=== PATIENT | male | born 1980 | race Two or more races ===

== ENCOUNTER 2024-09-24 10:58 | Emergency (ER) | payer MEDICAID, SELFPAY ==
[2024-09-24 11:33] VITALS: BP 155/94; PULSE 81; RESP 18; TEMP 37.3; O2SAT 98; BMI 38.5
--- NOTE | 2024-09-24 11:39 | XR_ITS ---
Examination: AP pelvis single view Technique: AP supine portable pelvis single view Exam date and time: September 24, 2024 1144 hrs. Indications: Injury to the pelvis 10 days ago, pelvic pain. Findings: No hip fractures or hip dislocations Bones of the pelvis intact Impression: No acute hip or pelvic fracture
--- NOTE | 2024-09-24 11:39 | XR_ITS ---
Examination: Sacrum and coccyx 3 views Technique: AP inclined AP lateral sacrum and coccyx 3 views Exam date and time: September 24, 2024 1133 hrs. Indications: Injury to the sacrum 10 days ago with pain Findings: Adequate alignment sacrococcygeal segments No acute sacral or coccygeal fracture Grade 1 spondylolisthesis L5 on S1 with moderate degenerative disc disease at this level Impression: Grade 1 spondylolisthesis L5 on S1 with moderate degenerative disc disease at this level
[2024-09-24] MEDS: KETOROLAC INJ 30 MG/ML VIAL IM (12:00)
--- NOTE | 2024-09-24 12:36 | EDNOTE_ITS ---
ED Back Injury Pain RME/HPI General Chief Complaint: Back Pain/Injury Stated Complaint: LOWER BACK PAIN RAD TO RIGHT BUTTOCK Time Seen by Provider: 09/24/24 11:02 Arrival date/time: 09/24/24 10:58 44-year-old male presents to the emergency department complains of lower back pain and right buttock pain patient reports symptoms ongoing for the last few days Limitations: no limitations Related Data Home Medications ?Medication ?Instructions ?Recorded ?Confirmed enalapril maleate 20 mg tablet 20 mg PO DAILY ##0 07/0103/08/18 Previous Rx's ?Medication ?Instructions ?Recorded hydrocodone 5 mg-acetaminophen 325 1 tab PO Q6HR PRN p ain (scale 03/09/18 mg tablet score 7-10) #12 tabs hydrocodone 5 mg-acetaminophen 325 1 tab PO BID PRN pa in #10 tabs 09/24/24 mg tablet Allergies Allergy/AdvReac Type Severity Reaction Status Date / Time No Known Allergies Allergy Verified 03/08/18 21:24 Review of Systems Review of Systems Systems Reviewed: All systems reviewed, normal except as documented Constitutional Constitutional: Reports system reviewed and no additional complaints, except as documented, Denies fever(s) and Denies headache(s) Eyes Eyes: Reports system reviewed and no additional complaints, except as documented and Denies blurry vision ENT Ears, Nose, Mouth, and Throat: Reports system reviewed and no additional complaints, except as documented, Denies headache(s), Denies nasal congestion, Denies nasal discharge and Denies neck pain Cardiovascular Cardiovascular: Reports system reviewed and no additional complaints, except as documented, Denies chest pain and Denies dyspnea Respiratory Respiratory: Reports system reviewed and no additional complaints, except as documented, Denies chest congestion, Denies cough and Denies dyspnea Gastrointestinal Gastrointestinal: Reports system reviewed and no additional complaints, except as documented and Denies abdominal pain Musculoskeletal Musculoskeletal: Reports system reviewed and no additional complaints, except as documented, Reports back pain, Denies deformity, Denies neck pain, Denies numbness, Reports stiffness and Denies tingling Integumentary/Breasts Skin/Breast: Reports system reviewed and no additional complaints, except as documented and Denies rash Neurologic Neurologic: Reports system reviewed and no additional complaints, except as documented, Reports as per HPI, Denies headache(s), Denies numbness and Denies tingling Past Medical History Past Medical History CARDIAC: Positive Hypertension; Negative Congestive Heart Failure RESPIRATORY: Negative Chronic Obstructive Pulmonary Disease (COPD) GENITOURINARY: Negative Renal Disease ENDOCRINE: Negative Diabetes Mellitus Type 1 or Diabetes Mellitus Type 2 PSYCHO/SOCIAL: Positive Anxiety Social History SMOKING STATUS: Never smoker SECOND HAND EXPOSURE: No ED Exam General Limitations: Present no limitations General appearance: Present alert and in no apparent distress Head Head exam: Present atraumatic, normocephalic and normal inspection Eye Eye exam: Present normal appearance, PERRL and EOMI; Absent conjunctival injection ENT ENT exam: Present normal exam, normal oropharynx and mucous membranes moist Neck Neck exam: Present normal inspection, full ROM and trachea midline Chest Chest inspection: Present normal inspection and symmetric chest wall rise Respiratory Respiratory exam: Present normal lung sounds bilaterally; Absent respiratory distress, wheezes, stridor, accessory muscle use or prolonged expiratory phase Cardiovascular Cardiovascular exam: Present regular rate, normal rhythm and normal heart sounds Abdominal Exam Abdominal exam: Present soft and normal bowel sounds; Absent distention, tenderness, guarding, rebound or rigidity Extremities Exam Extremities exam: Present normal inspection and full ROM; Absent tenderness Back Exam Back exam: Present normal inspection, full ROM, tenderness, muscle spasm and paraspinal tenderness; Absent CVA tenderness (R), CVA tenderness (L) or vert ebral tenderness Neurological Exam Neurological exam: Present alert, oriented X3 and CN II-XII intact Psychiatric Psychiatric exam: Present normal affect and normal mood Skin Skin exam: Present warm, dry, intact and normal color Course Quality Measures none Orders Category Date Time Status XR pelvis 1-2V Stat Exams 09/24/24 11:39 Completed XR sacrum coccyx min 2V Stat Exams 09/24/24 11:39 Completed Ketorolac Inj [Toradol Inj] Med 09/24/24 11:39 Discontinued 30 mg IM X1 ONE Vital Signs Vital signs: Vital Signs Temperature 99.2 F 09/24/24 11:33 Pulse Rate 81 09/24/24 11:33 Respiratory Rate 18 09/24/24 11:33 Blood Pressure 155/94 H 09/24/24 11:33 Pulse Oximetry (%) 98 09/24/24 11:33 Oxygen Delivery Method Room Air 09/24/24 11:33 o2 sat 98% r/a wnl Back Pain / Injury MDM Narrative MDM Narrative:: 44-year-old male presents to the emergency department complains of lower back pain and right buttock pain patient reports symptoms ongoing for the last few days On exam patient well-appearing patient does not appear ill or toxic patient reports no saddle anesthesia no loss of bowel or bladder no fever nausea or vomiting pt walks with steady gait Imaging obtained no acute emergent findings noted Patient given a copy of his x-ray reports told to follow-up with Workmen's Compensation doctor Patient discharged home in no distress to follow-up with primary care doctor in the next 24 to 48 hours and for any worsening symptoms to return to the ER immediately Patient data External records reviewed:: [facility] previous records Clinical information provided by:: patient Social determinants that could affect healthcare access:: none Patient has the following chronic illnesses:: None How is presenting disease/condition affected by chronic disease/condition?: no chronic disease Evaluation data The following diagnostics were reviewed and interpreted by me:: radiology exam(s) Lab and/or radiology exams considered but not ordered:: Radiology obtain Interpretation Summary: Reviewed by me Medications / Prescriptions Medications or Prescriptions considered but not ordered:: Given Medication administrations:: Medication Administration History Discontinued Medications Ketorolac Tromethamine (Ketorolac Inj 30 Mg/Ml Vial) 30 mg IM X1 ONE Stop: 09/24/24 11:40 Last Admin: 09/24/24 12:00 Dose: 30 mg Documented By: AF Given Consultations Consultation(s) initiated? (list below): No Diagnosis Differential diagnosis back pain/injury: lumbar radiculopathy, sciatica and strain of lumbar region Most likely diagnosis given after review of the tests above:: Back pain Admission Indicated Admission indicated?: not indicated Admission Request Was there a request for admission?: No Disposition Plan Disposition Plan: Discharge Discharge Attestation Discharge Attestation: The patient and all family members were given an opportunity to ask questions an d understood the discharge instructions. Discharge instructions specifically effects, indications for sooner follow up or return to the emergency department, and the expected course of current diagnosis. Patient condition: Stable Discharge Plan Plan Patient Disposition: HOME (Self Care) Disposition Comment: Stable Prescriptions/Referrals Prescriptions/Med Rec: New hydrocodone-acetaminophen 5-325 mg tablet 1 tab PO BID MDD 10 PRN (Reason: pain) Qty: 10 0RF No Action enalapril maleate 20 MG tablet 20 mg PO DAILY Qty: 0 hydrocodone-acetaminophen 5-325 mg Tablet 1 tab PO Q6HR MDD 4 tabs PRN (Reason: pain (scale score 7-10)) Qty: 12 0RF Referrals: No Primary/Family,Physician [Primary Care Provider] - 09/25/24 Problem List Clinical Impression: DDD (degenerative disc disease), lumbar Patient/Caregiver Discharge Instructions Education Materials: Back Safety: Lifting Additional Instructions: Please follow up with your primary care doctor in the next 24-48hrs for any worsening symptoms return here immediately Print Language: [place] Stand Alone Forms: Tia Award Info., Patient Portal Info Letter PA/MANAGER OF NETWORK Supervising Physician PA/MANAGER OF NETWORK Supervising Physician: Dr Conteh
== END 2024-09-24 12:57 | disposition home or self-care (01) ==
PROVIDERS: Emergency Provider Emergency Medicine
DX: M51.360 Other intervertebral disc degeneration, lumbar region with discogenic back pain only (principal)
CPT/HCPCS: 72170; 72220; 96372; 99283; J1885